=== PATIENT | male | born 1965 | race Hispanic/Latino ===

== ENCOUNTER 2017-02-21 21:17 | Emergency (ER) | payer OTHER ==
[2017-02-22] MEDS ORDERED: CATAPRES PO ONE (02:28)
[2017-02-22] MEDS ORDERED: TORADOL IM ONE (02:54)
--- NOTE | 2017-02-22 02:54 | Emergency Department Report ---
HPI - General Chief Complaint: Extremity Problem,Nontraumatic Time Seen by Provider: 02/22/17 02:53 - HPI HPI: This is a 51-year-old male with a history of gout who presents to ED complaining of swelling and pain on his left knee. Patient states he is out of his indomethacin for the past week and has a reticular medication. Patient states he is able to walk with without any problems. He denies fevers/chills/nausea/vomiting/abdominal pain since chest pain or any other problems. ED Past Medical Hx - Past Medical History Previous Medical History?: Yes Additional medical history: gout - Surgical History Past Surgical History?: Yes Additional Surgical History: gastric bypass 6 years ago - Social History Smoking Status: Never Smoker Substance Use Type: Alcohol - Medications Home Medications: Home Medications Medication Instructions Recorded Confirmed Last Taken Type Acetaminophen/Codeine [Tylenol 1 tab PO Q6H PRN #12 tab 02/22/17 Unknown Rx /Codeine # 3 tab] Diclofenac Potassium 50 mg PO BID #20 tablet 02/22/17 Unknown Rx Indomethacin 50 mg PO BID #30 capsule 02/22/17 Unknown Rx Lisinopril [Zestril TAB] 40 mg PO QDAY #20 tablet 02/22/17 Unknown Rx ED Review of Systems ROS: Stated complaint: GOUT FLARE UP Other details as noted in HPI Constitutional: denies: chills, fever Eyes: denies: eye pain, eye discharge, vision change ENT: denies: ear pain, throat pain Respiratory: denies: cough, shortness of breath, wheezing Cardiovascular: denies: chest pain, palpitations Endocrine: no symptoms reported Gastrointestinal: denies: abdominal pain, nausea, diarrhea Genitourinary: denies: urgency, dysuria Musculoskeletal: joint swelling, arthralgia. denies: back pain Skin: denies: rash, lesions Neurological: denies: headache, weakness, paresthesias Psychiatric: denies: anxiety, depression Hematological/Lymphatic: denies: easy bleeding, easy bruising Physical Exam - Physical Exam Vital Signs: Vital Signs 02/21/17 02/21/17 02/22/17 22:02 22:51 02:27 Temperature 98.1 F 98.1 F Pulse Rate 108 H 108 H 109 H Respiratory 22 20 Rate Blood Pressure 160/118 Blood Pressure 190/118 [Left] Blood Pressure 160/118 [Right] O2 Sat by Pulse 97 97 97 Oximetry 08/03/17 02:31 Temperature Pulse Rate 109 H Respiratory Rate Blood Pressure 190/118 Blood Pressure [Left] Blood Pressure [Right] O2 Sat by Pulse Oximetry Physical Exam: GENERAL: Alert and oriented x3, no apparent distress, Normal Gait, atraumatic. HEAD: Head is normocephalic and a-traumatic. EYES: Extra ocular muscles are intact. Pupils are equal, round, and reactive to light and accommodation. NECK: Supple. Non edematous, No carotid bruits. No lymphadenopathy or thyromegaly. No C-spine tenderness LUNGS: Symetrical with respiration, No wheezing, no rales or crackles, CTAB. HEART: S1, S2 present, regular rate and rhythm without murmur, no rubs, no gallops. Non tender to palpation EXTREMITIES/MUSCULOSKELETAL: No cyanosis, clubbing, rash, lesions or edema. Full ROM bilaterally. UE/LE Pulses 2+ bilaterally. LE and UE 5+ strength bilaterally, knee joints are intact. Mild swelling of the left knee, tenderness to palpation, warm and dry, no PSYCHIATRIC: Mood is congruent with affect, denies suicidal or homicidal ideations. SKIN: Warm and dry, No lesions, No ulceration or induration present. ED Course Vital Signs 02/21/17 02/21/17 02/22/17 22:02 22:51 02:27 Temperature 98.1 F 98.1 F Pulse Rate 108 H 108 H 109 H Respiratory 22 20 Rate Blood Pressure 160/118 Blood Pressure 190/118 [Left] Blood Pressure 160/118 [Right] O2 Sat by Pulse 97 97 97 Oximetry 02/22/17 02:31 Temperature Pulse Rate 109 H Respiratory Rate Blood Pressure 190/118 Blood Pressure [Left] Blood Pressure [Right] O2 Sat by Pulse Oximetry ED Medical Decision Making - Medical Decision Making [id number] male presents with knee pain possibly gouty arthritis ED course: Patient received indomethacin, Toradol in ED. Discussed patient with refill his indomethacin and to continue to take it at home. Discussed the follow up with his primary care physician. Discussed blood pressure control in ED. Patient received clonidine in the ED. Prior to discharge patient is to pressure was reduced. Patient was symptomatic in ED and Ativan on an uneventful ED stay Vital signs are normalized patient is in no acute distress. Critical care attestation.: If time is entered above; I have spent that time in minutes in the direct care of this critically ill patient, excluding procedure time. ED Disposition Clinical Impression: Arthralgia of knee, left Disposition: DC- TO HOME OR SELFCARE Is pt being admited?: No Does the pt Need Aspirin: No Condition: Stable Instructions: Acute Gouty Arthritis (ED), Arthralgia (ED) Additional Instructions: Follow-up with her primary care physician His symptoms worsen or new symptoms arise return to ED Prescriptions: Acetaminophen/Codeine [Tylenol /Codeine # 3 tab] 1 tab PO Q6H PRN #12 tab PRN Reason: Pain Diclofenac Potassium 50 mg PO BID #20 tablet Indomethacin 50 mg PO BID #30 capsule Lisinopril [Zestril TAB] 40 mg PO QDAY #20 tablet Referrals: OLVIN BENOIT III, FREIGHT LOADER-BC [Primary Care Provider] - 3-5 Days Forms: Accompanied Note, Work/School Release Form(ED) Time of Disposition: 04:57
[2017-02-22] MEDS ORDERED: INDOCIN PO ONE (04:53)
[2017-02-22 05:23] VITALS: BP 157/99
== END 2017-02-22 05:36 | disposition home or self-care (01) ==
LOC: ED 21:17
DX: M25.562 Pain in left knee (principal)
CPT/HCPCS: 96372; 99282; J1885

== ENCOUNTER 2019-06-04 21:56 | Emergency (ER) | payer OTHER ==
--- NOTE | 2019-06-04 22:13 | Emergency Department Report ---
ED General Adult HPI - General Chief complaint: Neuro Symptoms/Deficit Stated complaint: FA;; Time Seen by Provider: 06/04/19 22:04 Source: EMS Mode of arrival: Stretcher Limitations: Other - History of Present Illness Initial comments: 53-year-old male with a history of hypertension and gout presents with the complaint of lost feeling in right upper extremities since 7 pm. Patient had had a fall from a standing position at 830 and fell into bushes at daughter's house. Patient had no LOC and suffered an abrasion to his right hand region. Patient denies any history of CVA and denies any anticoagulation usage. Patient with EMS had elevated blood pressure as well per EMS. Patient states that he also noticed some tingling in his right upper extremity this morning. Patient denies any head trauma. Patient then came to his own residence around 9 pm and upon entering the home felt as if he couldnt move his right upper extremity or right lower extremity and fell to the ground. Patient again had no head trauma. - Related Data Previous Rx's Medication Instructions Recorded Last Taken Type Acetaminophen/Codeine [Tylenol 1 tab PO Q6H PRN #12 tab 02/22/17 Unknown Rx /Codeine # 3 tab] Diclofenac Potassium 50 mg PO BID #20 tablet 02/22/17 Unknown Rx Indomethacin 50 mg PO BID #30 capsule 02/22/17 Unknown Rx Lisinopril [Zestril TAB] 40 mg PO QDAY #20 tablet 02/22/17 Unknown Rx Allergies Allergy/AdvReac Type Severity Reaction Status Date / Time No Known Allergies Allergy Verified 07/12/16 21:48 ED Review of Systems ROS: Stated complaint: FA;; Other details as noted in HPI Constitutional: denies: chills, fever Eyes: denies: eye pain, eye discharge, vision change ENT: denies: ear pain, throat pain Respiratory: denies: cough, shortness of breath, wheezing Cardiovascular: denies: chest pain, palpitations Endocrine: no symptoms reported Gastrointestinal: denies: abdominal pain, nausea, diarrhea Genitourinary: denies: urgency, dysuria Musculoskeletal: denies: back pain, joint swelling, arthralgia Skin: denies: rash, lesions Neurological: weakness, numbness Psychiatric: denies: anxiety, depression Hematological/Lymphatic: denies: easy bleeding, easy bruising ED Past Medical Hx - Past Medical History Additional medical history: gout - Surgical History Additional Surgical History: gastric bypass 6 years ago - Social History Smoking Status: Unknown if ever smoked - Medications Home Medications: Home Medications Medication Instructions Recorded Confirmed Last Taken Type Acetaminophen/Codeine [Tylenol 1 tab PO Q6H PRN #12 tab 02/22/17 Unknown Rx /Codeine # 3 tab] Diclofenac Potassium 50 mg PO BID #20 tablet 02/22/17 Unknown Rx Indomethacin 50 mg PO BID #30 capsule 02/22/17 Unknown Rx Lisinopril [Zestril TAB] 40 mg PO QDAY #20 tablet 02/22/17 Unknown Rx ED Physical Exam - General Limitations: Other General appearance: alert, other (uncomfortable; ) - Head Head exam: Present: atraumatic, normocephalic - Eye Eye exam: Present: normal appearance - ENT ENT exam: Present: mucous membranes moist - Neck Neck exam: Present: normal inspection - Respiratory Respiratory exam: Present: normal lung sounds bilaterally. Absent: respiratory distress - Cardiovascular Cardiovascular Exam: Present: regular rate, normal rhythm. Absent: systolic murmur, diastolic murmur, rubs, gallop - GI/Abdominal GI/Abdominal exam: Present: soft, normal bowel sounds - Rectal Rectal exam: Present: deferred - Extremities Exam Extremities exam: Present: normal inspection - Back Exam Back exam: Present: normal inspection - Neurological Exam Neurological exam: Present: alert, oriented X3, CN II-XII intact - Expanded Neurological Exam Expanded Patient oriented to: Present: person, place, time Cranial nerves: EOM's Intact: Normal Cerebellar function: Finger to Nose: Normal Motor strength exam: RUE: 4, LUE: 5, RLE: 5, LLE: 5 Best Eye Response (Addison): (4) open spontaneously Best Motor Response (Joshua): (6) obeys commands Best Verbal Response (Addison): (5) oriented Addison Total: 15 - Psychiatric Psychiatric exam: Present: normal affect, normal mood - Skin Skin exam: Present: warm, dry, intact, normal color. Absent: rash ED Medical Decision Making - Lab Data Result diagrams: 06/04/19 22:00 - Medical Decision Making Patient was noted to have an intracranial bleed. Patient was given labetalol 20 mg IV while here in emergency room. Patient was accepted for transfer at [facility] by Dr. guerrero. Patient also evaluated by teleneurology while in the ER. - Differential Diagnosis CVA; dehydration; electrolyte abnormality; cranial bleed Critical care attestation.: If time is entered above; I have spent that time in minutes in the direct care of this critically ill patient, excluding procedure time. ED Disposition Clinical Impression: Intracranial bleed, Hypertensive emergency Disposition: DC/TX-70 ANOTHER TYPE HLTHCARE Is pt being admited?: No Condition: Fair Instructions: Hypertension (ED) Referrals: JUSTYNA MARAVILLA MD [Primary Care Provider] - 3-5 Days Time of Disposition: 22:43
[2019-06-04 22:15] LABS: Basophils # (Auto) 0.1 K/mm3 (0.0-0.1); Basophils % (Auto) 0.8 % (0.0-1.8); Eosinophils # (Auto) 0.2 K/mm3 (0.0-0.4); Eosinophils % (Auto) 1.4 % (0.0-4.3); Hematocrit 44.4 % (35.5-45.6); Hemoglobin 15.2 gm/dl (11.8-15.2); Lymphocytes # (Auto) 2.7 K/mm3 (1.2-5.4); Lymphocytes % (Auto) 22.9 % (13.4-35.0); Mean Corpuscular HGB Conc 34 % (32-34); Mean Corpuscular Volume 92 fl (84-94); Monocytes # (Auto) 0.7 K/mm3 (0.0-0.8); Monocytes % (Auto) 6.4 % (0.0-7.3); Platelet Count 192 K/mm3 (140-440); Red Blood Count 4.81 M/mm3 (3.65-5.03); Red Cell Distribution Width 14.6 % (13.2-15.2)
[2019-06-04 22:26] LABS: INR 0.96 (0.87-1.13)
[2019-06-04 22:27] LABS: Partial Thromboplastin Time 22.7 Sec. (24.2-36.6); Thrombin Time 16.6 Sec. (15.1-19.6)
--- NOTE | 2019-06-04 22:31 | Consultation ---
History of Present Illness History of present illness: [facility] Date of Service:06/04/2019 22:01:51 Impression: ICH Comments: Right sided weakness Metrics: Last Known Well: Unknown [employer] Notification Time: 06/04/2019 22:00:51 Arrival Time: 06/04/2019 21:56:00 Stamp Time: 06/04/2019 22:01:51 Time First Login Attempt: 06/04/2019 22:03:17 Video Start Time: 06/04/2019 22:03:17 Symptoms: Fall from standing, Right sided weakness. NIHSS Start Assessment Time: 06/04/2019 22:16:02 Patient is not a candidate for tPA. Patient was not deemed candidate for tPA thrombolytics because of Current or Previous ICH. Video End Time: 06/04/2019 22:29:42 CT head per ED MD had Left basal ganglia ICH. I was unable to open the scans to review images. Advanced imaging was not obtained as the presentation was not suggestive of Large Vessel Occlusive Disease. Radiologist was not called back for review of advanced imaging because not obtained ER Physician notified of the decision on thrombolytics management on 06/04/2019 22:29:44 Our recommendations are outlined below. Recommendations: Activate Stroke Protocol Admission/Order Set Stroke/Telemetry Floor Neuro Checks Bedside Swallow Eval DVT Prophylaxis IV Fluids, Normal Saline Head of Bed Below 30 Degrees Euglycemia and Avoid Hyperthermia (PRN Acetaminophen) Keep SBP<140. Avoid antiplatelets/anticoagulants. Neurosurgery consutl. CBC, Coags. Sign Out: Discussed with Emergency Department Provider History of Present Illness: Patient is a 53 year old Male. Patient was brought by EMS for symptoms of Fall from standing, Right sided weakness. 53 YO M with h/o HTN and gout presented after a fall from standing, he states that he has been having some numbness on his right toe side since Sunday which he thought was from his gout. Today about an hour ago he fell from standing. he has right sided weakness. Examination: 1A: Level of Consciousness - Alert; keenly responsive+ 0 1B: Ask Month and Age - 1 Question Right+ 1 1C: Blink Eyes & Squeeze Hands - Performs Both Tasks+ 0 2: Test Horizontal Extraocular Movements - Normal+ 0 3: Test Visual Torres - No Visual Loss+ 0 4: Test Facial Palsy (Use Grimace if Obtunded) - Normal symmetry+ 0 5A: Test Left Arm Motor Drift - No Drift for 10 Seconds+ 0 5B: Test Right Arm Motor Drift - Drift, hits bed+ 2 6A: Test Left Leg Motor Drift - No Drift for 5 Seconds+ 0 6B: Test Right Leg Motor Drift - No Effort Against [place]+ 3 7: Test Limb Ataxia (FNF/Heel-Bhakta) - No Ataxia+ 0 8: Test Sensation - Mild-Moderate Loss: Less Sharp/More Dull+ 1 9: Test Language/Aphasia - Normal; No aphasia+ 0 10: Test Dysarthria - Normal+ 0 11: Test Extinction/Inattention - No abnormality+ 0 NIHSS Score:7 Patient was informed the Neurology Consult would happen via TeleHealth consult by way of interactive audio and video telecommunications and consented to receiving care in this manner. Due to the immediate potential for life-threatening deterioration due to underlying acute neurologic illness, I spent 35 minutes providing critical care. This time includes time for face to face visit via telemedicine, review of medical records, imaging studies and discussion of findings with providers, the patient and/or family. Dr Renée Paul [facility] Medications and Allergies Allergies Allergy/AdvReac Type Severity Reaction Status Date / Time No Known Allergies Allergy Verified 07/12/16 21:48 Home Medications Medication Instructions Recorded Confirmed Last Taken Type Acetaminophen/Codeine [Tylenol 1 tab PO Q6H PRN #12 tab 02/22/17 Unknown Rx /Codeine # 3 tab] Diclofenac Potassium 50 mg PO BID #20 tablet 02/22/17 Unknown Rx Indomethacin 50 mg PO BID #30 capsule 02/22/17 Unknown Rx Lisinopril [Zestril TAB] 40 mg PO QDAY #20 tablet 02/22/17 Unknown Rx Results - Laboratory Findings CBC and BMP: 06/04/19 22:00 Abnormal Lab Findings: Abnormal Labs 06/04/19 06/04/19 22:00 22:00 WBC 11.7 H Seg Neutrophils # 8.0 H APTT 22.7 L
--- NOTE | 2019-06-04 22:35 | Cat Scan Report ---
CT head/brain wo con INDICATION / CLINICAL INFORMATION: 53 years Male; Stroke symptoms. TECHNIQUE: Routine CT head without contrast. All CT scans at this location are performed using CT dos e reduction for ALARA by means of automated exposure control. COMPARISON: None. FINDINGS: BRAIN / INTRACRANIAL CONTENTS: There is an acute hematoma centered along the posterior limb of the le ft internal capsule measuring 1.5 x 1.60 cm transversely. There appears be mild surrounding edema and mass effect. This finding may be on a hypertensive basis given the location and correlation would be needed. The brain otherwise demonstrate mild cerebral white matter disease most consistent with microvascular angiopathy at. Other than a slight mass effect at along the posterior left lateral ventricle, the ve ntricular system appears appropriate in size and configuration. ORBITS: No significant abnormality of visualized orbits. SINUSES / MASTOIDS: No significant abnormality the visualized paranasal sinuses or mastoid air cells. CRANIOCERVICAL JUNCTION: No significant abnormality. ADDITIONAL FINDINGS: None. IMPRESSION: 1. There is acute at 1.5 x 1.6 cm hematoma centered along the posterior limb of the left internal cap juarez with associated mild mass effect as detailed above. 2. There is otherwise mild microvascular angiopathy. The study was specified as code stroke. The findings represent a positive clinical test result and we re discovered at 9 8:26 PM and called emergently to Dr. Sims in the ER at 9:28 PM Central standard t [place]. Signer Name: Dell Campbell MD Signed: 06/04/2019 10:30 PM Workstation Name: [id number]
[2019-06-04 22:38] LABS: Creatine Kinase MB 1.2 ng/mL (0.0-4.0)
[2019-06-04 22:40] LABS: Alanine Aminotransferase 12 units/L (7-56); Albumin 4.1 g/dL (3.9-5); BUN/Creatinine Ratio 17; Blood Urea Nitrogen 20 mg/dL (9-20); Calcium 9.5 mg/dL (8.4-10.2); Hemolysis Index 10
--- NOTE | 2019-06-04 22:59 | XRay Report ---
CHEST 1 VIEW INDICATION: chest pain. COMPARISON: None FINDINGS: SUPPORT DEVICES: None. HEART / MEDIASTINUM: No significant abnormality. LUNGS / PLEURA: No significant pulmonary or pleural abnormality. No pneumothorax. ADDITIONAL FINDINGS: IMPRESSION: 1. No acute findings. Signer Name: Garry Burleson MD Signed: 06/04/2019 10:55 PM Workstation Name: [id number]
[2019-06-04] MEDS ORDERED: ONDANSETRON 4 MG/2 ML INJ IV ONE (23:07)
[2019-06-04] MEDS ORDERED: MORPHINE 4 MG/1 ML INJ IV ONE (23:07)
[2019-06-04 23:41] LABS: INR 0.94 (0.87-1.13)
[2019-06-04 23:42] LABS: Partial Thromboplastin Time 23.6 Sec. (24.2-36.6)
[2019-06-05 00:11] VITALS: BP 185/135
== END 2019-06-05 00:11 | disposition other institution (70) ==
LOC: ED 21:56
DX: I62.9 Nontraumatic intracranial hemorrhage, unspecified (principal); I16.0 Hypertensive urgency; I10 Essential (primary) hypertension; M10.9 Gout, unspecified; Z79.899 Other long term (current) drug therapy; Z98.84 Bariatric surgery status
CPT/HCPCS: 36415; 70450; 71045; 80053; 82550; 82553; 82962; 84484; 85025; 85610; 85670; 85730; 93005; 93010; 96374; 96375; 99285; J2270; J2405

== ENCOUNTER 2019-06-25 15:54 | Emergency (ER) | payer OTHER ==
[2019-06-25 17:00] VITALS: BP 107/71
--- NOTE | 2019-06-25 17:01 | Emergency Department Report ---
Blank Doc - Documentation Documentation: 53-year-old male that presents with hypotensive. Was sent by PCP. This initial assessment/diagnostic orders/clinical plan/treatment(s) is/are subject to change based on patient's health status, clinical progression and re- assessment by fellow clinical providers in the ED. Further treatment and workup at subsequent clinical providers discretion. Patient/guardians urged not to elope from the ED as their condition may be serious if not clinically assessed and managed. Initial orders include: 1- Patient sent to MAIN for further evaluation and treatment 2- labs 3- EKG
[2019-06-25 17:39] LABS: Basophils # (Auto) 0.2 K/mm3 (0.0-0.1); Basophils % (Auto) 1.9 % (0.0-1.8); Eosinophils # (Auto) 1.3 K/mm3 (0.0-0.4); Eosinophils % (Auto) 11.7 % (0.0-4.3); Hematocrit 43.5 % (35.5-45.6); Hemoglobin 14.2 gm/dl (11.8-15.2); Lymphocytes # (Auto) 2.4 K/mm3 (1.2-5.4); Lymphocytes % (Auto) 21.4 % (13.4-35.0); Mean Corpuscular HGB Conc 33 % (32-34); Mean Corpuscular Volume 96 fl (84-94); Monocytes # (Auto) 0.5 K/mm3 (0.0-0.8); Monocytes % (Auto) 4.8 % (0.0-7.3); Platelet Count 157 K/mm3 (140-440); Red Blood Count 4.55 M/mm3 (3.65-5.03); Red Cell Distribution Width 15.4 % (13.2-15.2)
[2019-06-25 17:46] LABS: Albumin 3.6 g/dL (3.9-5); Calcium 9.1 mg/dL (8.4-10.2)
[2019-06-25 18:16] LABS: INR 1.02 (0.87-1.13)
[2019-06-25 18:17] LABS: Partial Thromboplastin Time 25.2 Sec. (24.2-36.6)
== END 2019-06-25 17:34 | disposition left against medical advice (07) ==
LOC: ED 15:54
DX: R03.0 Elevated blood-pressure reading, without diagnosis of hypertension (principal); Z53.21 Procedure and treatment not carried out due to patient leaving prior to being seen by health care provider
CPT/HCPCS: 36415; 80053; 84484; 85025; 85610; 85730; 93005; 93010

== ENCOUNTER 2019-08-04 22:08 | Emergency (ER) | payer OTHER ==
[2019-08-05] MEDS ORDERED: COLCHICINE 0.6 MG CAP PO ONE (03:28)
--- NOTE | 2019-08-05 03:33 | Emergency Department Report ---
HPI - General Chief Complaint: Extremity Injury, Lower Time Seen by Provider: 08/05/19 03:20 - HPI HPI: 53-year-old male presents to the emergency department with a complaint of some left foot pain and swelling that he believes is an exacerbation of his gout. The patient usually takes indomethacin but has been out of it and does not have an appointment with his primary care physician until Sunday. Overall this has been going on for the past month but worsened over the past few days. Patient also has a history of previous CVA. He denies any trauma or injury. His primary care physician is Dr. Rudolph Benoit. ED Past Medical Hx - Past Medical History Hx Hypertension: Yes Hx CVA: Yes (rt side weakness) Additional medical history: gout - Surgical History Additional Surgical History: gastric bypass 6 years ago - Social History Smoking Status: Never Smoker Substance Use Type: None - Medications Home Medications: Home Medications Medication Instructions Recorded Confirmed Last Taken Type Acetaminophen/Codeine [Tylenol 1 tab PO Q6H PRN #12 tab 02/22/17 Unknown Rx /Codeine # 3 tab] Diclofenac Potassium 50 mg PO BID #20 tablet 02/22/17 Unknown Rx Indomethacin 50 mg PO BID #30 capsule 02/22/17 Unknown Rx lisinopriL [Zestril TAB] 40 mg PO QDAY #20 tablet 02/22/17 Unknown Rx Prednisone [predniSONE 10 mg 10 mg PO .TAPER #1 tab.ds.pk 08/05/19 Unknown Rx (6-Day Pack, 21 Tabs)] ED Review of Systems ROS: Stated complaint: GOUT LEFT FOOT Other details as noted in HPI Comment: All other systems reviewed and negative Constitutional: denies: chills, fever Musculoskeletal: joint swelling, arthralgia Skin: denies: rash, lesions Neurological: denies: numbness, paresthesias Physical Exam - Physical Exam Vital Signs: Vital Signs 08/04/19 23:37 Temperature 99.4 F Pulse Rate 119 H Respiratory 22 Rate Blood Pressure 147/125 O2 Sat by Pulse 99 Oximetry Physical Exam: GENERAL: The patient is well-developed well-nourished. HEENT: Normocephalic. Atraumatic. Patient has moist mucous membranes. EYES: Extraocular motions are intact. NECK: Supple. Trachea is midline CHEST/LUNGS: Clear to auscultation. There is no respiratory distress noted. HEART/CARDIOVASCULAR: Regular. There is mild tachycardia. SKIN: There is some mild nonpitting swelling of the left foot. No erythema but it is warm to touch. No fluctuance. No rash or lesions. NEURO: The patient is awake, alert, and oriented. The patient is cooperative. The patient has no focal neurologic deficits. Normal speech. MUSCULOSKELETAL: There is tenderness to palpation of the left midfoot. Left Dorsalis pedis +2 over 4. There is no limitation range of motion. ED Course Vital Signs 08/04/19 23:37 Temperature 99.4 F Pulse Rate 119 H Respiratory 22 Rate Blood Pressure 147/125 O2 Sat by Pulse 99 Oximetry ED Medical Decision Making - Medical Decision Making This patient presents to the emergency department with the complaint of left foot pain and swelling that he believes is a gout attack. The patient does have a history of gout and usually is on indomethacin but has run out of this medication. On examination he has some mild nonpitting swelling and some warmth but there is no erythema, rash, lesions. Since the patient did not have any trauma and there are no obvious deformities, I did not feel that x-ray imaging was necessary at this time. The patient will receive a dose of colchicine. He also will be treated with some prednisone for his gout. The last time that this patient was here he had some renal insufficiency and therefore I did not want to use indomethacin at this time. I am aware of the patient's tachycardia but I believe it is secondary to his foot pain. He was given a [place]. He does not have any chest pain, shortness of breath, back pain, palpitations. The patient has an appointment with his primary care physician in about one week. He has been instructed to return to the emergency Department with any worsening of his symptoms or any acute distress. - Differential Diagnosis gout, osteoarthritis, cellulitis, tendinitis Critical Care Time: No Critical care attestation.: If time is entered above; I have spent that time in minutes in the direct care of this critically ill patient, excluding procedure time. ED Disposition Clinical Impression: Left foot pain Gout attack Qualifiers: Gout site: foot Gout etiology: unspecified cause Laterality: left Qualified Code(s): M10.9 - Gout, unspecified Disposition: -01 TO HOME OR SELFCARE Is pt being admited?: No Condition: Stable Instructions: Acute Gouty Arthritis (ED) Additional Instructions: Please follow up with your primary care physician in the next few days. Return to the emergency Department with any worsening of your symptoms or any acute distress. Prescriptions: Prednisone [predniSONE 10 mg (6-Day Pack, 21 Tabs)] 10 mg PO .TAPER #1 tab.ds.pk Referrals: RUDOLPH BENOIT III, ANSHUL [Referring] - 3-5 Days Time of Disposition: 03:33
[2019-08-05 04:26] VITALS: BP 129/106
[2019-08-05] MEDS ORDERED: HYDROcodone/ACETAMINOPHEN 5-325 MG TAB PO ONE (04:43)
== END 2019-08-05 05:00 | disposition home or self-care (01) ==
LOC: ED 22:08
DX: M10.9 Gout, unspecified (principal); Z86.73 Personal history of transient ischemic attack (TIA), and cerebral infarction without residual deficits; Z79.899 Other long term (current) drug therapy

== ENCOUNTER 2020-05-31 12:17 | Emergency (ER) | payer SELFPAY ==
--- NOTE | 2020-05-31 13:01 | Emergency Department Report ---
Blank Doc - Documentation Documentation: 54-year-old male that presents with genital rash and right knee pain and swell ing with hx of gout. Exam: Tachycardia at 130. This initial assessment/diagnostic orders/clinical plan/treatment(s) is/are subject to change based on patient's health status, clinical progression and re- assessment by fellow clinical providers in the ED. Further treatment and workup at subsequent clinical providers discretion. Patient/guardians urged not to elope from the ED as their condition may be serious if not clinically assessed and managed. Initial orders include: 1- Patient sent to MAIN ED for further evaluation and treatment 2- labs 3- UA 4- EKG
[2020-05-31 13:55] LABS: Bilirubin,Urine NEG (Negative); Blood,Urine SM (Negative); Color,Urine Yellow (Yellow); Mucus,Urine 1+ /HPF; Protein,Urine <15 mg/dL mg/dL (Negative)
[2020-05-31 14:06] LABS: Basophils % (Auto) 0.4 % (0.0-1.8); Eosinophils # (Auto) 0.2 K/mm3 (0.0-0.4); Eosinophils % (Auto) 2.9 % (0.0-4.3); Hematocrit 49.5 % (35.5-45.6); Hemoglobin 16.7 gm/dl (11.8-15.2); Lymphocytes # (Auto) 1.9 K/mm3 (1.2-5.4); Lymphocytes % (Auto) 30.3 % (13.4-35.0); Mean Corpuscular HGB Conc 34 % (32-34); Mean Corpuscular Volume 98 fl (84-94); Monocytes # (Auto) 0.5 K/mm3 (0.0-0.8); Monocytes % (Auto) 7.7 % (0.0-7.3); Platelet Count 203 K/mm3 (140-440); Red Blood Count 5.07 M/mm3 (3.65-5.03); Red Cell Distribution Width 16.8 % (13.2-15.2)
[2020-05-31 14:20] LABS: Albumin 4.2 g/dL (3.9-5); Calcium 9.8 mg/dL (8.4-10.2)
[2020-05-31 16:23] VITALS: BP 169/136
--- NOTE | 2020-05-31 19:00 | Emergency Department Report ---
ED General Adult HPI - General Chief complaint: Medical Clearance Stated complaint: GOUT RT KNEE Time Seen by Provider: 05/31/20 12:45 Source: patient Mode of arrival: Ambulatory Limitations: No Limitations - History of Present Illness Initial comments: 54-year-old male presents to ED with multiple complaints. First he reports he is having a gout flare in his right knee. He reports right knee pain x3 days. Patient states he usually takes indomethacin for it, however he does not currently have insurance and cannot afford the medication. Secondly, patient reports skin irritation to his penis that has been present x1 year. Patient states he was circumcised approximately 3 years ago and has been having problems since. He reports he had STD testing done, which was negative. Patient states he has been on oral antibiotics and tried multiple topical creams, however he still has irritation and discomfort. Thirdly, patient states he ran out of his lisinopril 40 mg tabs approximately 3 days ago and needs a refill. -: days(s) (3) Location: genitals, right, lower extremity Quality: burning, aching Consistency: intermittent Improves with: none Worsens with: movement Associated Symptoms: denies: fever/chills - Related Data Previous Rx's Medication Instructions Recorded Last Taken Type Acetaminophen/Codeine [Tylenol 1 tab PO Q6H PRN #12 tab 02/22/17 Unknown Rx /Codeine # 3 tab] Diclofenac Potassium 50 mg PO BID #20 tablet 02/22/17 Unknown Rx Indomethacin 50 mg PO BID #30 capsule 02/22/17 Unknown Rx Prednisone [predniSONE 10 mg 10 mg PO .TAPER #1 tab.ds.pk 08/05/19 Unknown Rx (6-Day Pack, 21 Tabs)] Bacitracin Zinc Oint [Antibiotic 1 applicatio TP BID #1 tube 05/31/20 Unknown Rx Oint] Clotrimazole 1% [Lotrimin] 1 applic TP BID #1 tube 05/31/20 Unknown Rx lisinopriL [Zestril TAB] 40 mg PO QDAY #30 tablet 05/31/20 Unknown Rx predniSONE [Deltasone] 50 mg PO QDAY #5 tab 05/31/20 Unknown Rx traMADoL [Ultram] 50 mg PO Q6HR PRN #7 tablet 05/31/20 Unknown Rx Allergies Allergy/AdvReac Type Severity Reaction Status Date / Time No Known Allergies Allergy Verified 07/12/16 21:48 ED Review of Systems ROS: Stated complaint: GOUT RT KNEE Other details as noted in HPI Comment: All other systems reviewed and negative Constitutional: denies: chills, fever Genitourinary: as per HPI Musculoskeletal: as per HPI ED Past Medical Hx - Past Medical History Previous Medical History?: Yes Hx Hypertension: Yes Hx CVA: Yes (rt side weakness) Additional medical history: gout - Surgical History Past Surgical History?: No Additional Surgical History: gastric bypass 6 years ago - Social History Smoking Status: Never Smoker Substance Use Type: None - Medications Home Medications: Home Medications Medication Instructions Recorded Confirmed Last Taken Type Acetaminophen/Codeine [Tylenol 1 tab PO Q6H PRN #12 tab 02/22/17 Unknown Rx /Codeine # 3 tab] Diclofenac Potassium 50 mg PO BID #20 tablet 02/22/17 Unknown Rx Indomethacin 50 mg PO BID #30 capsule 02/22/17 Unknown Rx Prednisone [predniSONE 10 mg 10 mg PO .TAPER #1 tab.ds.pk 08/05/19 Unknown Rx (6-Day Pack, 21 Tabs)] Bacitracin Zinc Oint [Antibiotic 1 applicatio TP BID #1 tube 05/31/20 Unknown Rx Oint] Clotrimazole 1% [Lotrimin] 1 applic TP BID #1 tube 05/31/20 Unknown Rx lisinopriL [Zestril TAB] 40 mg PO QDAY #30 tablet 05/31/20 Unknown Rx predniSONE [Deltasone] 50 mg PO QDAY #5 tab 05/31/20 Unknown Rx traMADoL [Ultram] 50 mg PO Q6HR PRN #7 tablet 05/31/20 Unknown Rx ED Physical Exam - General Limitations: No Limitations General appearance: alert, in no apparent distress - Head Head exam: Present: atraumatic, normocephalic - Eye Eye exam: Present: normal appearance, EOMI - ENT ENT exam: Present: mucous membranes moist - Neck Neck exam: Present: normal inspection - Respiratory Respiratory exam: Present: normal lung sounds bilaterally. Absent: respiratory distress - Cardiovascular Cardiovascular Exam: Present: normal rhythm, tachycardia - GI/Abdominal GI/Abdominal exam: Present: soft. Absent: distended, tenderness - External exam: Present: other (erythema to the inferior aspect of the head of the penis, tender to palpation, no significant swelling present) - Extremities Exam Extremities exam: Present: tenderness (Right knee). Absent: joint swelling - Neurological Exam Neurological exam: Present: alert, oriented X3 - Psychiatric Psychiatric exam: Present: normal affect, normal mood - Skin Skin exam: Present: warm, dry, intact, normal color ED Course Vital Signs 05/31/20 05/31/20 12:30 16:22 Temperature 99.2 F 98.7 F Pulse Rate 130 H 102 H Respiratory 18 16 Rate Blood Pressure 161/114 Blood Pressure 169/136 [Right] O2 Sat by Pulse 96 97 Oximetry ED Medical Decision Making - Lab Data Result diagrams: 05/31/20 13:34 05/31/20 13:34 Critical care attestation.: If time is entered above; I have spent that time in minutes in the direct care of this critically ill patient, excluding procedure time. ED Disposition Clinical Impression: Gout attack, Medication refill, Balanitis Disposition: [id number] TO HOME OR SELFCARE Is pt being admited?: No Condition: Stable Instructions: Low-Purine Eating Plan, Balanitis Prescriptions: Bacitracin Zinc Oint [Antibiotic Oint] 1 applicatio TP BID #1 tube predniSONE [Deltasone] 50 mg PO QDAY #5 tab Clotrimazole 1% [Lotrimin] 1 applic TP BID #1 tube traMADoL [Ultram] 50 mg PO Q6HR PRN #7 tablet PRN Reason: Pain lisinopriL [Zestril TAB] 40 mg PO QDAY #30 tablet Referrals: OLVIN BENOIT III, ANDREA- [Primary Care Provider] - 3-5 Days [facility] [Provider Group] - 3-5 Days [facility] [place] [Outside] - 3-5 Days Time of Disposition: 19:14
== END 2020-05-31 19:23 | disposition home or self-care (01) ==
LOC: ED 12:17
DX: M10.9 Gout, unspecified (principal); N48.1 Balanitis; I10 Essential (primary) hypertension; Z79.899 Other long term (current) drug therapy; Z86.73 Personal history of transient ischemic attack (TIA), and cerebral infarction without residual deficits; Z98.890 Other specified postprocedural states; Z76.0 Encounter for issue of repeat prescription
CPT/HCPCS: 36415; 80053; 81001; 84443; 84550; 85025; 99283